=== PATIENT | female | born 1965 | race Two or more races ===

== ENCOUNTER → 2019-05-08 | Outpatient (CLI) | payer MEDICAID ==
[~2019-05-08] MED LIST: HCTZ; LOSA25TA25
== END | disposition home or self-care (01) ==
LOC: CFH 11:58
PROVIDERS: ATTEND Internal Medicine Cardiovascular Disease
DX: I10 Essential (primary) hypertension (principal); E78.5 Hyperlipidemia, unspecified
CPT/HCPCS: 78452; 93017; 93306; A9502

== ENCOUNTER 2019-06-26 14:12 | Outpatient (CLI) | payer MEDICAID | END 2019-06-26 23:59 | disposition home or self-care (01) | LOC: STAR 14:12 | PROVIDERS: ATTEND Specialist | DX: Z01.811 Encounter for preprocedural respiratory examination (principal); R94.31 Abnormal electrocardiogram [ECG] [EKG]; R19.00 Intra-abdominal and pelvic swelling, mass and lump, unspecified site; N95.0 Postmenopausal bleeding; D25.9 Leiomyoma of uterus, unspecified | CPT/HCPCS: 36415; 71046; 80053; 85025; 85610; 85730; 93005 ==

== ENCOUNTER 2019-10-11 10:03 | Emergency (ER) | payer MEDICAID ==
[~2019-10-11] VITALS: Ht 157.5 cm; Wt 78.2 kg
[~2019-10-11 10:03] MED LIST changes: +DEXA6TAB PO; +LOSA50TA14 PO; +METO-282 PO; +ONDA4TAB12 PO
--- NOTE | 2019-10-11 11:26 | NUR ---
PT GIVEN NOTE PER FOR CLEARANCE TO RECIEVE TO CHEMO TODAY
[2019-10-11 11:27] VITALS: BP 145/86
== END 2019-10-11 11:34 | disposition home or self-care (01) ==
LOC: ED 11:31
DX: I10 Essential (primary) hypertension (principal)
CPT/HCPCS: 93005; 99283

== ENCOUNTER → 2020-01-25 | Outpatient (CLI) | payer MEDICAID ==
[~2020-01-25] MED LIST changes: +OMNIPAQUE 350 MG/ML, 100ML BOTTLE ONE; +ONDA-89 PO; -ONDA4TAB12 PO
== END | disposition home or self-care (01) ==
LOC: CFH 08:10
PROVIDERS: ATTEND Registered Nurse Maternal Newborn
DX: C57.00 Malignant neoplasm of unspecified fallopian tube (principal); J98.4 Other disorders of lung; F41.9 Anxiety disorder, unspecified; Z51.11 Encounter for antineoplastic chemotherapy; Z15.01 Genetic susceptibility to malignant neoplasm of breast
CPT/HCPCS: 71260; 74177; 82565; Q9967